=== PATIENT | male | born 1975 | race African-American/Black ===

== ENCOUNTER 2023-12-10 17:26 | Emergency (ER) | payer MEDICAID ==
[~2023-12-10] VITALS: Ht 177.8 cm; Wt 118.2 kg
[2023-12-10 17:29] VITALS: BP 173/73; PULSE 76; RESP 16; TEMP 98
[2023-12-10] MEDS: ACETAMINOPHEN 500 MG TABLET PO ONE (18:08)
[2023-12-10] MEDS: LIDOCAINE 5% TRANSDERMAL PATCH TD ONE (18:09)
[2023-12-10] MEDS: KETOROLAC TROMETHAMINE 30 MG/ML VIAL IM ONE (18:09)
== END 2023-12-10 19:20 | disposition left against medical advice (07) ==
LOC: EMS 17:27
DX: S39.012A Strain of muscle, fascia and tendon of lower back, initial encounter (principal); F17.210 Nicotine dependence, cigarettes, uncomplicated; V49.88XA Car occupant (driver) (passenger) injured in other specified transport accidents, initial encounter; Y93.89 Activity, other specified; Y92.89 Other specified places as the place of occurrence of the external cause; Y99.8 Other external cause status
CPT/HCPCS: 99283; 96372; J1885